=== PATIENT | female | born 1985 | race Caucasian/White ===

== ENCOUNTER 2018-04-13 17:20 | Emergency (ER) | payer SELFPAY ==
[~2018-04-13] VITALS: Ht 172.7 cm; Wt 113.4 kg
[~2018-04-13 17:20] MED LIST: ALBU90OI61 INH; DEXGUASY PO; DOXY100 PO; HYDACE5 PO; HYDHCL25 PO; NAPR550 PO; PROM25 PO; RXNAPNA550 PO
[2018-04-13] MEDS ORDERED: TYLECOD3 (17:59)
[2018-04-13] MEDS ORDERED: CLIN300 PO (17:59)
== END 2018-04-13 18:17 | disposition home or self-care (01) ==
LOC: ER 17:20
DX: K08.89 Other specified disorders of teeth and supporting structures (principal); Z88.0 Allergy status to penicillin; Z88.1 Allergy status to other antibiotic agents; Z87.891 Personal history of nicotine dependence; F17.200 Nicotine dependence, unspecified, uncomplicated
CPT/HCPCS: 99282

== ENCOUNTER 2018-05-19 09:28 | Emergency (ER) | payer OTHER ==
[~2018-05-19] VITALS: Ht 172.7 cm; Wt 113.4 kg
[~2018-05-19 09:28] MED LIST changes: +CLIN300 PO; +TYLECOD3
== END 2018-05-19 11:22 | disposition home or self-care (01) ==
LOC: ER 09:28
DX: M25.561 Pain in right knee (principal); Z87.891 Personal history of nicotine dependence; Z88.0 Allergy status to penicillin; Z88.1 Allergy status to other antibiotic agents; W10.9XXA Fall (on) (from) unspecified stairs and steps, initial encounter
CPT/HCPCS: 73564; 96372; 99283-25; J1885